=== PATIENT | female | born 1950 | race African-American/Black ===

== ENCOUNTER 2021-08-19 15:29 | Outpatient (CLI) | payer MEDICARE, SELFPAY ==
--- NOTE | ~2021-08-19 | MR_ITS ---
EXAMINATION: MRA brain wo con DATE: 08/19/2021 16:46 INDICATION: Abnormal finding on MRI of brain. Headache. TECHNIQUE: Magnetic resonance angiography (MRA) of the brain was performed without intravenous contra st with T1-weighted SPGR by the 3D tris-jh-eelghm technique. Maximum intensity projection 3D-reconstr uctions were obtained. COMPARISON: None. FINDINGS: The vertebral arteries are codominant. There is no significant stenosis of basilar artery or the post erior cerebral arteries. There is no significant stenosis of the intracranial internal carotid arteri es or anterior or middle cerebral arteries. Anterior communicating artery is normal. Right posterior communicating artery is normal. A left posterior communicating artery is not identified. There is no aneurysm. IMPRESSION: 1. No aneurysm or significant intracranial arterial stenosis. Reviewed, dictated and finalized at location A.
== END 2021-08-19 15:30 | disposition home or self-care (01) ==
LOC: ANHIMG 15:38
DX: R90.89 Other abnormal findings on diagnostic imaging of central nervous system (principal); R42 Dizziness and giddiness
CPT/HCPCS: 70544